=== PATIENT | male | born 1975 | race Hispanic/Latino ===

== ENCOUNTER 2016-09-02 03:25 | Emergency (ER) | payer OTHER ==
[2016-09-02] MEDS ORDERED: METHYLPRED SOD SUCC 125 MG/2 ML VIAL ONE (04:03)
[2016-09-02] MEDS ORDERED: FAMOTIDINE 20 MG TAB ONE (04:03)
== END 2016-09-02 04:35 | disposition home or self-care (01) ==
LOC: ER 03:25
DX: J30.81 Allergic rhinitis due to animal (cat) (dog) hair and dander (principal)
CPT/HCPCS: 96372; 99283; J2930